=== PATIENT | male | born 1995 | race Caucasian/White ===

== ENCOUNTER 2021-10-10 11:03 | Emergency (ER) | payer SELFPAY ==
[~2021-10-10] VITALS: Ht 177.8 cm; Wt 65.8 kg
[2021-10-10] MEDS ORDERED: METH4TAB3 PO (13:26)
[2021-10-10] MEDS ORDERED: D-ME118S47 PO (13:26)
[2021-10-10 13:34] VITALS: BP 118/76
== END 2021-10-10 13:32 | disposition home or self-care (01) ==
LOC: EDH 11:03
DX: U07.1 COVID-19 (principal)
CPT/HCPCS: 87426; 87880

== ENCOUNTER 2022-09-22 12:21 | Emergency (ER) | payer OTHER ==
[~2022-09-22] VITALS: Ht 177.8 cm; Wt 65.8 kg
[~2022-09-22 12:21] MED LIST: D-ME118S47 PO; METH4TAB3 PO
[2022-09-22 13:03] LABS: BASOPHILS % (AUTO) 0.6 % (0.0-5.0); EOSINOPHILS % (AUTO) 1.6 % (0.0-8.0); HEMATOCRIT 41.7 % (42-54); LYMPHOCYTES % (AUTO) 30.1 % (21.0-51.0); MEAN CORPUSCULAR HEMOGLOBIN 30.3 pg (27.0-33.0); MEAN CORPUSCULAR HGB CONC 35.3 g/dL (32.0-36.0); MONOCYTES % (AUTO) 8.3 % (3.0-13.0); NEUTROPHILS % (AUTO) 59.2 % (40.0-77.0); PLATELET COUNT (AUTO) 221 K/uL (130-400); RED BLOOD CELL COUNT(AUTO) 4.85 MIL/uL (4.50-6.20); RED CELL DISTRIBUTION WIDTH 12.2 % (11.0-15.5)
[2022-09-22 13:38] LABS: POTASSIUM 4.4 mmol/L (3.5-5.1)
[2022-09-22 13:42] LABS: ALBUMIN 4.2 g/dL (3.5-5.0); TOTAL PROTEIN, SERUM 7.3 g/dL (6.0-8.3)
[2022-09-22 14:40] LABS: APPEARANCE,URINE CLEAR (CLEAR); BILIRUBIN,URINE NEGATIVE (NEGATIVE); COLOR,URINE LIGHT-YELLOW (YELLOW); GLUCOSE, URINE (UA) NEGATIVE (NEGATIVE); KETONES,URINE NEGATIVE (NEGATIVE); LEUKOCYTE ESTERASE ,URINE NEGATIVE Leu/uL (NEGATIVE); NITRATE,URINE NEGATIVE (NEGATIVE); OCCULT BLOOD,URINE NEGATIVE (NEGATIVE); PROTEIN,URINE NEGATIVE (NEGATIVE); UROBILINOGEN,URINE 0.2 mg/dL (0.2-1.0)
[2022-09-22] MEDS ORDERED: DICY20TA2 PO (17:30)
[2022-09-22 17:43] VITALS: BP 122/64
== END 2022-09-22 17:46 | disposition home or self-care (01) ==
LOC: EDH 12:21
DX: R10.11 Right upper quadrant pain (principal); Z20.822 Contact with and (suspected) exposure to COVID-19; Z79.52 Long term (current) use of systemic steroids
CPT/HCPCS: 99284; 76705; 87635; 80053; 83690; 85025; 87804 ×2; 81003; 36415; C9803